=== PATIENT | male | born 1985 | race Caucasian/White ===

== ENCOUNTER 2023-07-27 16:04 | Emergency (ER) | payer BC, SELFPAY ==
[2023-07-27 16:36] VITALS: PULSE 90; O2SAT 98
--- NOTE | 2023-07-27 16:48 | ED_ITS ---
I was consulted by the JUANCHO, and we discussed the complexity of the problems being addressed. I approved the treatment and management plan for this patient's care in the emergency department, thus performing a substantive portion of the medical decision making. Saul Yin MD, JEM, FACE Discharge Plan Disposition Patient Disposition: Home, Self-Care Condition: Good Prescriptions Prescriptions: New doxycycline hyclate 100 mg capsule 100 mg PO BID 10 Days Qty: 20 0RF Referrals Follow up/Referrals: Yamel Valdez APRN [Primary Care Provider] - See instructions Vijay Cunningham MD [Staff Physician] - See instructions Activity Restrictions/Add. Instructions Additional Instructions/Restrictions: Please keep track of your laboratory results via the [facility] portal. The culture results will will appear in a few days. Please call and make an appointment with urology in the a.m. for further evaluation of blood in your sperm. We have provided a number for a local urologist case you do not have one. Please take Tylenol Motrin as needed for discomfort and elevate the scrotum for comfort. Please return to the emergency department or your PCP any worsening or change in your symptoms. Clinical Impressions Clinical Impression: Acute epididymitis, Complicated urinary tract infection, Hematospermia Stand Alone Forms Stand Alone Forms: Work/School Release Instructions Patient Instructions: DI for Urinary Tract Infection (UTI) Discharge ED Provider: Saul Yin General Adult HPI General Chief complaint: Urogenital-Male Stated complaint: sent by Dr. Valdez-painful testicle Time Seen by Provider: 07/27/23 16:48 History of Present Illness HPI narrative: Patient presents with a 3-day history of testicular pain. Patient saw his PCP and and was referred here for further evaluation. Patient gives no history of trauma and reports blood with his semen upon ejaculation. Patient ports that he does not have high risk factors and is currently monogamous but he was from his for period of time last fall. Since reconciled. Patient reports no fever just increasing right testicular pain no dysuria Related Data Previous Rx's Medication Instructions Recorded doxycycline hyclate 100 mg capsule 100 mg PO BID 10 days #20 caps 07/27/23 Allergies Allergy/AdvReac Type Severity Reaction Status Date / Time NO KNOWN ALLERGIES - NKA Allergy Unknown Uncoded 05/19/17 14:47 [facility] Disclaimer: The information contained in this section may have been updated after the patient was seen, as this information can be updated by other users. Social History Smoking Status: Never smoker alcohol intake: never current occupational status: employed Travel in the last 8 weeks: None ROS Obtained: Yes Systems reviewed as appropriate & no additional complaints except as documented Physical Exam General General appearance: alert and other (Patient appears visibly uncomfortable but otherwise in no acute distress) Head Head exam: atraumatic Eye Eye exam: Present normal appearance, PERRL and EOMI ENT ENT exam: Present normal exam Neck Neck exam: Present normal inspection Chest Chest inspection: Present normal inspection and symmetric chest wall rise Respiratory Respiratory exam: Present normal lung sounds bilaterally Cardiovascular Cardiovascular exam: Present regular rate, normal rhythm and normal heart sounds Abdominal Exam Abdominal exam: Present soft and normal bowel sounds; Absent tenderness, guarding or rebound exam: Present testicular tenderness (Patient has exquisitely tender right testicle which appears to be enlarged. External genitalia appear to be normal. There is no discharge from the meatus. No edema of the scrotum.); Absent urethral discharge or scrotal swelling Extremities Exam Extremities exam: Present normal inspection and full ROM Neurological Exam Neurological exam: Present alert and oriented X3 Psychiatric Psychiatric exam: Present normal affect and normal mood Skin Skin exam: Present warm, dry and normal color Medical Decision Making Medical Records Medical records reviewed: Yes I reviewed the patient's medical records. Ciro Inquiry Pt receiving controlled substance: No Vital Signs: 07/27/23 16:50 07/27/23 18:10 07/27/23 16:36 Temperature 98.4 F 98 F Temperature Source Oral Pulse Rate 74 90 Pulse Rate [Left] 89 Respiratory Rate 16 16 Blood Pressure 127/92 H Blood Pressure [Right Arm] 140/103 H Blood Pressure Mean [Right Arm] 115 Blood Pressure Source [Right Arm] Automatic Cuff Blood Pressure Position [Right Arm] Sitting 02 Sat by Pulse Oximetry 98 98 Oxygen Delivery Method Room Air 07/27/23 17:53 Temperature Temperature Source Pulse Rate 82 Pulse Rate [Left] Respiratory Rate Blood Pressure 127/92 H Blood Pressure [Right Arm] Blood Pressure Mean [Right Arm] Blood Pressure Source [Right Arm] Blood Pressure Position [Right Arm] 02 Sat by Pulse Oximetry 95 Oxygen Delivery Method Lab Data Lab results reviewed: Yes I reviewed the patient's lab results. Lab Results 07/27/23 16:48: WBC 10.6, RBC 4.93, Hgb 15.0, Hct 45.4, MCV 92.1, MCH 30.4, MCHC 33.0, RDW 12.3, Plt Count 263, MPV 8.2, Neut % (Auto) 72.6, Lymph % (Auto) 21.7, [place] % (Auto) 4.6, Eos % (Auto) 0.9, Baso % (Auto) 0.3, Neut # (Auto) 7.7, Lymph # (Auto) 2.3, [place] # (Auto) 0.5, Eos # (Auto) 0.1, Baso # (Auto) 0.0, Sodium 139, Potassium 4.5, Chloride 101, Carbon Dioxide 33 H, Anion Gap 9.5, BUN 8 L, Creatinine 0.70, Estimated GFR 128, Est GFR ( Amer) 154, Glucose 101 H, Calcium 9.5, Procalcitonin 0.032 07/27/23 17:17: Urine Color Yellow, Urine Appearance Clear, Urine pH 6.5, Ur Specific [place] 1.020, Urine Protein Negative, Urine Glucose (UA) Negative, Urine Ketones Negative, Urine Blood Negative, Urine Nitrate Negative, Urine Bilirubin Negative, Urine Urobilinogen 1.0, Ur Leukocyte Esterase Negative, Urine RBC None, Urine WBC 3-5, Ur Squamous Epith Cells None, Urine Bacteria None 07/27/23 16:48 07/27/23 16:48 Orders (Tests/Meds): ED MEDICATIONS Discontinued Medications Generic Name Dose Route Start Last Admin Trade Name Bruce PRN Reason Stop Dose Admin Acetaminophen 1,000 mg 07/27/23 17:26 07/27/23 18:00 Acetaminophen 500mg Tab PO 07/27/23 17:27 1,000 mg ONCE ONE Administration Ceftriaxone Sodium 500 mg 07/27/23 17:39 07/27/23 17:59 Ceftriaxone 500mg Vial IM 07/27/23 17:40 500 mg ONCE ONE Administration Ketorolac Tromethamine 15 mg 07/27/23 17:26 07/27/23 17:59 Ketorolac 30mg/Ml Vial IV 07/27/23 17:27 15 mg ONCE ONE Administration Lidocaine HCl 0 ml 07/27/23 17:39 07/27/23 18:00 Lidocaine 1% 5ml Pf Vial IM 07/27/23 17:40 2 ml ONCE ONE Administration ORDERS Category Date Time Status BMP [Basic Metabolic Panel] Stat Lab 07/27/23 16:48 Completed CBC w/Auto Diff [Complete Blood Count Auto Diff] Stat Lab 07/27/23 16:48 Completed Procalcitonin Stat Lab 07/27/23 16:48 Completed Urinalysis and Microscopic Stat Lab 07/27/23 17:17 Completed US scrotum [US Testicular] Stat Ultrasound 07/27/23 16:54 Completed Medical Decision Narrative: In summary patient is a 37-year-old male who presents to the emergency department for evaluation of acute testicle pain. Patient is hemodynamically stable upon arrival, afebrile. Physical exam shows an exquisitely tender right testicle normal left testicle and normal external genitalia. There is no discharge from the meatus. Patient reports no high risk behaviors however has had a period of nonmonogamy but no known sexual transmitted diseases previously does not engage in high risk sexual behaviors. Differential diagnosis includes testicular torsion versus epididymitis versus orchitis. Initial workup will be conducted with hematologic labs ultrasound of the testicle.. Initial interventions include Toradol and ibuprofen. Initial workup reviewed by me shows a normal white count without a left shift and urinalysis shows sterile pyuria. Testicular ultrasound shows epididymitis without torsion with good flow in the bilateral testicles. Upon repeat evaluation patient had modest improve ment in discomfort. Given this appropriate for discharge with prescription for doxycycline for 10 days with IM Rocephin prior to discharge. Patient advised to follow with the portal to follow culture results. Patient to return to the emergency department for worsening symptoms or to his PCP. Patient verbalized understanding and agreement. Critical Care Critical Care Time Critical Care Time: No
[2023-07-27 16:50] VITALS: BP 140/103; PULSE 89; RESP 16; TEMP 36.9; O2SAT 98; BMI 25.7
--- NOTE | 2023-07-27 16:54 | US_ITS ---
PROCEDURE INFORMATION: Exam: US Scrotum and US Duplex Artery and Vein, Scrotum, Complete Exam date and time: 07/27/2023 4:56 PM Age: 37 years old Clinical indication: Scrotum pain; Additional info: Acute testicular pain TECHNIQUE: Imaging protocol: Real-time ultrasound of the scrotum. Real-time duplex ultrasound scan of the arterial and venous flow of the scrotum with B-mode, color Doppler flow and spectral waveform analysis. Complete exam. Duplex exam was performed to evaluate for torsion and other vascular conditions. COMPARISON: No relevant prior studies available. FINDINGS: Right testicle: Size and echogenicity within normal limits for age. No testicular mass. Color and spectral Doppler demonstrate normal testicular arterial and venous blood flow. No hyperemia. Left testicle: Size and echogenicity within normal limits for age. No testicular mass. Color and spectral Doppler demonstrate normal testicular arterial and venous blood flow. No hyperemia. Epididymides: Hyperemia in the right epididymis compatible with epididymitis. Left epididymis is unremarkable. Scrotum: Small right hydrocele. IMPRESSION: 1. Hyperemia in the right epididymis compatible with epididymitis. No evidence of orchitis or testicular torsion. 2. Small right hydrocele.
[2023-07-27 17:02] LABS: Basophils % 0.3 % (0.1-2.0); Eosinophils # 0.1 K/mm3 (0.0-0.4); Eosinophils % 0.9 % (0.1-12.0); Hematocrit 45.4 % (42.0-52.0); Lymphocytes # 2.3 K/mm3 (0.7-4.5); Lymphocytes % 21.7 % (10-50); Mean Corpuscular Hemoglobin 30.4 pg (27.0-31.2); Mean Corpuscular Volume 92.1 fl (80-94); Mean Platelet Volume 8.2 fl (7.4-10.4); Monocytes # 0.5 K/mm3 (0.1-1.0); Monocytes % 4.6 % (1.7-9.3); Neutrophils # 7.7 K/mm3 (1.8-7.8); Neutrophils % 72.6 % (37.0-80.0); Platelet Count 263 K/mm3 (142-424); Red Blood Count 4.93 M/mm3 (4.60-6.20); Red Cell Distribution Width 12.3 % (11.5-17.5); White Blood Count 10.6 K/mm3 (4.8-10.8)
--- NOTE | 2023-07-27 17:04 | PC.NURSE ---
Pt gone to u/s
[2023-07-27 17:09] LABS: Anion Gap 9.5 mEq/L (5-15); Blood Urea Nitrogen 8 mg/dl (9-20); Calcium 9.5 mg/dl (8.4-10.2); Carbon Dioxide 33 mmol/L (22.0-30.0); Chloride 101 mmol/L (98-107); Estimated Glomerular Filt Rate 128 ml/min (>60); GFR (African American) 154 ML/MIN (>60); Glucose 101 mg/dl (74-100); Potassium 4.5 mmoL/L (3.5-5.1); Sodium 139 mmol/L (136-145)
[2023-07-27 17:26] LABS: Procalcitonin 0.032 ng/mL (0.0-2.0)
[2023-07-27 17:33] LABS: Microscopic, Urine URINE MICROSCOPIC (MICROSCOPIC)
[2023-07-27 17:37] LABS: Appearance,Urine CLEAR (Clear); Bilirubin,Urine Negative (Negative); Blood, Urine Negative (Negative); Color,Urine YELLOW (Yellow); Glucose,Urine (UA) Negative (Negative); Ketones,Urine Negative (Negative); Leukocyte Esterase,Urine Negative (Negative); Nitrate,Urine Negative (Negative); PH,Urine 6.5 (5.0-8.5); Protein,Urine Negative (Negative)
[2023-07-27 17:53] VITALS: BP 127/92; PULSE 82; O2SAT 95
[2023-07-27] MEDS: KETOROLAC 30MG/ML VIAL 15 MG IV (17:59)
[2023-07-27] MEDS: cefTRIAXone 500MG VIAL 500 MG IM (17:59)
[2023-07-27] MEDS: LIDOCAINE 1% 5ML PF VIAL IM (18:00)
[2023-07-27] MEDS: ACETAMINOPHEN 500MG TAB 1000 MG PO (18:00)
[2023-07-27 18:10] VITALS: BP 127/92; PULSE 74; RESP 16; TEMP 36.6
[2023-07-30 07:43] LABS: Neisseria gonorrhoeae, NAA Negative (Negative)
== END 2023-07-27 18:23 | disposition home or self-care (01) ==
PROVIDERS: Physician Assistant; Emergency Provider Student in an Organized Health Care Education/Training Program; PCP Nurse Practitioner
DX: N45.1 Epididymitis (principal); N39.0 Urinary tract infection, site not specified; R36.1 Hematospermia; N50.819 Testicular pain, unspecified
CPT/HCPCS: 76870; 80048; 81001; 84145; 85025; 87491; 87591; 96372; 96374; 99285; J0696